=== PATIENT | male | born 1985 | race Caucasian/White ===

== ENCOUNTER 2017-02-20 18:38 | Emergency (ER) | payer OTHER ==
[2017-02-20 18:47] VITALS: BP 137/82
--- NOTE | 2017-02-20 19:36 | ERNOTE ---
Medical Problem HPI - Narrative Date of Service: 02/20/17 - General Chief Complaint: Upper Extremity Injury/Problem Time Seen by Provider: 02/20/17 19:05 Source: patient, RN notes reviewed Exam Limitations: no limitations - Immun/Allergies/Home Medications Immunizations: IMMUNIZATION HX Immunizations Up to Date Yes History of Influenza Vaccine No Hx Pneumococcal Vaccination No Allergies/Adverse Reactions: Allergies No Known Allergies Allergy (Verified 07/31/16 09:37) Home Medications: HOME MEDICATIONS NK [No Home Medication] 02/20/17 [Last Taken Unknown] - History of Present History Narrative: 31 y/o male ambulatory to the ED for an episode of numbness and weakness in his right arm and leg that occurred just ENV[employer]MENT[employer] and have since resolved. 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 The automobile club information clerk weakness lasted only a few seconds. His symptoms began while he was showering. He reports he had felt fine all day. Review of Systems - Review of Systems Constitutional: Absent: recent illness, fever, chills, fatigue, malaise EYE: Absent: eye pain, blurred vision ENT: Present: no symptoms reported Respiratory: Absent: shortness of breath, cough Cardiology: Absent: chest pain, syncope Gastrointestinal/Abdominal: Absent: nausea, vomiting, diarrhea, eating less, drinking less Genitourinary: Present: no symptoms reported Musculoskeletal: Absent: back pain, muscle pain, neck pain, joint pain Skin: Absent: rash, lesions Neurological: Absent: headache, dizziness/light-headedness Endocrine: Present: no symptoms reported Hematologic/Lymphatic: Absent: easy bruising, easy bleeding Psych: Absent: anxiety - Patient's Past Medical History Patient History - Medical: No pertinent hx Patient History - Cardiac/Respiratory: No pertinent hx Patient History - Cancer: No Hx of Cancer Patient History - Surgical Procedures: T & A Patient History - Other: None - Family History Mother Family History - Medical: No pertinent hx Father Family History - Medical: No pertinent hx - Social History Living Situations: home Abuse History: No History of abuse Psych History: No pertinent hx Smoking Status: Never smoker Have you smoked in the past 12 months: No Do you dip or chew tobacco: No Alcohol Use: occasionally Drug Use: none - Immunizations Immunizations Up to Date: Yes Hx Pneumococcal Vaccination: No History of Influenza Vaccine: No Physical Exam - Physical Exam General Appearance: Present: wd/wn, alert, no apparent distress, other - Clean, well dressed and groomed Eye Exam: Normal inspection: bilateral, PERRL: bilateral Ears, Nose, Throat: Present: normal ENT inspection Neck: Present: normal inspection, nontender, supple, full range of motion Respiratory: Present: no respiratory distress, normal breath sounds, no accessory muscle use, lungs clear Cardiovascular/Chest: Present: regular rate, rhythm, no murmur, normal peripheral pulses Gastrointestinal/Abdominal: Present: normal bowel sounds, nontender, nondistended, soft Extremity Exam: Present: normal inspection, normal range of motion Neurological Exam: Present: alert, oriented, normal mood/affect, no motor/ sensory deficits Skin Exam: Present: normal color, warm/dry ED Progress - Vital Signs Patient's Vital Signs:: I have reviewed the patient's vital signs. Vital Signs: Vital Signs 02/20/17 18:39 Temperature 37.3 C Pulse Rate 98 Respiratory 16 Rate Blood Pressure 137/82 O2 Sat by Pulse 100 Oximetry - Progress/Reassessment Chief Complaint: Upper Extremity Injury/Problem Progress:: Improved Plan - Plan Plan: Symptoms resolved and physical exam is unremarkable. Reassured patient that symptoms did not sound concerning for a stroke (this was his main worry) but discussed f/u if the symptoms return or are occurring intermittently. Departure - Departure Clinical Impression: Transient neurological symptoms Disposition: Home self-care Condition: Good Instructions: Paresthesia Additional Instructions: Return for persistent symptoms, or see your doctor for further evaluation if you continue to have similar transient episodes
== END 2017-02-20 19:30 | disposition home or self-care (01) ==
LOC: ER 18:38
DX: R20.8 Other disturbances of skin sensation (principal)

== ENCOUNTER 2017-03-22 16:37 | Emergency (ER) | payer OTHER ==
[2017-03-22 16:49] VITALS: BP 149/100
[2017-03-22 18:14] LABS: Hematocrit 42.3 % (42.0-52.0); Hemoglobin 14.5 gm/dL (13.5-18.0); Mean Corpuscular Hemoglobin 28.1 pg (27-31); Mean Corpuscular Hgb Conc 34.3 g/dl (32-36); Mean Platelet Volume 9.2 fl (6.0-9.5); Neutrophil # 5.9 K/mm3 (1.3-6.0); Neutrophil % 59.8 % (42-75.0); Platelet Count 329 K/mm3 (150-450); Red Blood Count 5.16 M/mm3 (4.7-6.0); Red Cell Distribution Width 12.9 % (11.5-14.0); White Blood Count 9.9 K/mm3 (4.0-10.5)
[2017-03-22 18:38] LABS: Albumin * 4.2 gm/dl (3.4-5.0); Anion Gap 15.7 mmol/L (6.8-13.8); BUN/Creatinine Ratio 8.4 (9.0-21.6); Bilirubin, Total 0.2 mg/dL (0.0-1.1); Ca. Corrected For Albumin 8.7 mg/dL (8.4-10.2); Calcium * 9.2 mg/dL (7.9-10.9); Carbon Dioxide 27.4 mmol/L (24-32.6); Potassium 4.1 mmol/L (3.4-4.6); Total Protein 7.7 gm/dL (6.2-8.2)
--- NOTE | 2017-03-22 18:40 | ERNOTE ---
Medical Problem HPI - Narrative Date of Service: 03/22/17 - General Chief Complaint: General Assessment Time Seen by Provider: 03/22/17 18:37 Source: patient - Immun/Allergies/Home Medications Immunizations: IMMUNIZATION HX Immunizations Up to Date Yes History of Influenza Vaccine No Hx Pneumococcal Vaccination No Allergies/Adverse Reactions: Allergies No Known Allergies Allergy (Verified 03/22/17 16:49) Home Medications: HOME MEDICATIONS NK [No Home Medication] 02/20/17 [Last Taken Unknown] - History of Present History Narrative: LIGHTHEADED FEELING OFF AND ON FOR 1 WEEK. SAYS ITS A LITTLE LIKE FEELING IN A FOG . IT COMES AND GOES. NO OTHER SYMPTOMS HE WAS JUST HERE LAST MONTH WITH C/O OF [place]. HE DENIES ANY MEDS OR DRUG. SAYS HE HAS OCC BEER. HE CAN NOT RELATE ANY CAUSING ACTIVITIES. NO HX OF WEAKNESS . HE WONDERS IF HE COULD BE DIABETIC. NO HAMM OR N OR V O D. ONLY HOSPITALIZED CHILD FOR T & A. NEVER HAD ANY SERIOUS ILLNESS. 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 HAS NO PCP. Review of Systems - Review of Systems Constitutional: Present: See HPI EYE: Present: no symptoms reported ENT: Present: no symptoms reported Respiratory: Present: no symptoms reported Cardiology: Present: no symptoms reported Gastrointestinal/Abdominal: Present: no symptoms reported Genitourinary: Present: no symptoms reported Musculoskeletal: Present: no symptoms reported Skin: Present: no symptoms reported Neurological: Present: See HPI, dizziness/light-headedness Endocrine: Present: no symptoms reported Hematologic/Lymphatic: Present: no symptoms reported Psych: Present: no symptoms reported All Other Systems: All systems neg except as marked - Patient's Past Medical History Patient History - Medical: No pertinent hx Patient History - Cardiac/Respiratory: No pertinent hx Patient History - Cancer: No Hx of Cancer Patient History - Surgical Procedures: T & A Patient History - Other: None - Family History Mother Family History - Medical: No pertinent hx Father Family History - Medical: No pertinent hx - Social History Living Situations: home Abuse History: No History of abuse Psych History: No pertinent hx Alcohol Use: occasionally Drug Use: none - Immunizations Immunizations Up to Date: Yes Hx Pneumococcal Vaccination: No History of Influenza Vaccine: No Physical Exam - Physical Exam General Appearance: Present: wd/wn, alert, no apparent distress - HEALTHY LOOKING YOUNG MAN WITH NAD. ON ADMISSION FIRST BP ~ 150/100 BUT SUBSEQUENT BP ARE NORMAL SO I DOUBT THAT WAS AN ACCURATE READING. 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 Absent: facial droop, motor weakness, disoriented to person, disoriented to time, disoriented to place, disoriented to situation DTR: N=norm/NB=norm/brisk/A=abs/DD=dull/dimin/HC=hyperactive: Tricep (R): Normal , Tricep (L): Normal, Knee (R): Normal, Knee (L): Normal Skin Exam: Present: normal color, warm/dry ED Progress - Results and Orders Patient's Lab Results:: I have reviewed the patient's lab results. Results and Orders: CBC CMP = NORMAL. - Vital Signs Vital Signs: Vital Signs 03/22/17 16:44 Temperature 36.4 C L Pulse Rate 95 Respiratory 12 Rate Blood Pressure 149/100 O2 Sat by Pulse 96 Oximetry - EKG EKG: NSR EKG read: Interp. by me - Progress/Reassessment Chief Complaint: General Assessment Departure - Departure Clinical Impression: Intermittent lightheadedness Disposition: Home Follow Up Needed Condition: Good Instructions: Dizziness, [id number] Additional Instructions: I FIND NO SIGN OF ANY ILLNESS. I SUGGEST YOU GET AN APPOINTMENT WITH A NEUROLOGY PHYSICIAN TO DISCUSS IF ANY FURTHER TREATMENT IS NEEDED. USE DR SEWELL 'S NUMBER TO CALL THE CLINIC FOR APPOINTMENT FOR FURTHER EXAM. AVOID ANY DRUGS OR ALCOHOL IN THE MEANTIME. Referrals: Varinder Sewell MD [Staff Physician] -
[2017-03-22 19:05] LABS: Urine Bilirubin Negative (NEGATIVE); Urine Blood 50 /ul (NEGATIVE); Urine Ketone Negative (NEGATIVE); Urine Nitrite Negative (NEGATIVE); Urine Protein Negative (NEGATIVE); Urine Urobilinogen Normal (NORMAL)
[2017-03-22 19:09] LABS: Hemoglobin A1C 5.6 % (4.00-6.0)
[2017-03-22 19:18] LABS: Cocaine Ur Negative (NEGATIVE); Urine Barbiturate Negative (NEGATIVE); Urine Benzodiazepines Negative (NEGATIVE); Urine Opiates Negative (NEGATIVE); Urine PCP Negative (NEGATIVE); Urine THC Negative (NEGATIVE)
[2017-03-22 19:28] LABS: Urine Appearance Clear; Urine Bacteria None Seen; Urine Color Yellow; Urine RBC TRACE /hpf (0-5); Urine WBC None Seen /hpf (0-5)
== END 2017-03-22 20:20 | disposition home or self-care (01) ==
LOC: ER 16:37
DX: R42 Dizziness and giddiness (principal)
CPT/HCPCS: 36415; 80053; 80307; 81001; 83036; 84443; 85025; 93005; 99284; G0481

== ENCOUNTER 2017-06-24 13:19 | Emergency (ER) | payer OTHER ==
[2017-06-24] MEDS ORDERED: LORazepam 2 MG/ML DISP.SYRIN IV ONE (13:42)
[2017-06-24] MEDS ORDERED: LORazepam 2 MG/ML DISP.SYRIN ONE (13:44)
--- NOTE | 2017-06-24 13:47 | ERNOTE ---
Chest Pain/Cardiac HPI Date of Service: 06/24/17 Chief Complaint: Chest Pain Source: patient Exam Limitations: no limitations Immunizations: IMMUNIZATION HX Immunizations Up to Date Yes History of Influenza Vaccine No Hx Pneumococcal Vaccination No Allergies/Adverse Reactions: Allergies No Known Allergies Allergy (Verified 06/24/17 13:44) Home Medications: HOME MEDICATIONS ALPRAZolam [Xanax] 0.25 mg PO TID PRN #15 tab 06/24/17 [Last Taken Unknown] Narrative: 32 yo WM who was at work when he developed sudden onset of lower sternal chest tightness and mild SOB. Denies any other associated symptoms. Now complains of being nervous. Chest pressure still present and is aware of the SOB intermittently which he describes as taking a full breathe and seems he doesn't have enough air. Has been healthy and active. Review of Systems - Review of Systems Constitutional: Present: no symptoms reported EYE: Present: no symptoms reported ENT: Present: no symptoms reported Cardiology: Present: no symptoms reported Gastrointestinal/Abdominal: Present: no symptoms reported Genitourinary: Present: no symptoms reported Musculoskeletal: Present: no symptoms reported - Patient's Past Medical History Patient History - Medical: No pertinent hx Patient History - Cardiac/Respiratory: No pertinent hx Patient History - Cancer: No Hx of Cancer Patient History - Surgical Procedures: T & A Patient History - Other: None - Family History Mother Family History - Medical: No pertinent hx Father Family History - Medical: No pertinent hx - Social History Living Situations: home Abuse History: No History of abuse Psych History: No pertinent hx Alcohol Use: occasionally Drug Use: none - Immunizations Immunizations Up to Date: Yes Hx Pneumococcal Vaccination: No History of Influenza Vaccine: No Physical Exam - Physical Exam General Appearance: Present: wd/wn, alert, no apparent distress Head Exam: Present: normal inspection Eye Exam: PERRL: bilateral, EOMI: bilateral Ears, Nose, Throat: Present: normal ENT inspection Neck: Present: normal inspection Respiratory: Present: no respiratory distress, normal breath sounds Cardiovascular/Chest: Present: regular rate, rhythm Peripheral Pulses: N=norm/S=strong/W=weak/B=bound/A=absent: Radial (R): Normal, Strong, Radial (L): Normal, Strong Gastrointestinal/Abdominal: Present: normal bowel sounds, nontender, nondistended, soft Extremity Exam: Present: normal inspection, non-tender, normal range of motion, no edema Neurological Exam: Present: alert, oriented, normal mood/affect, no motor/ sensory deficits ED Progress - Results and Orders Patient's Lab Results:: I have reviewed the patient's lab results. - Vital Signs Patient's Vital Signs:: I have reviewed the patient's vital signs. - EKG EKG: other - tachycardia - X-Ray X-Ray #1 X-Ray: chest Interpretation: Reviewed by me - Progress/Reassessment Progress Note-Subjective: 06/24/17 14:31 Pain free and no discomfort or tightness. SOB also gone 06/24/17 15:08 Continues to feel well. Still with HR in 110-120's Plan - Plan Plan: Follow up with PCP Return to ED if condition worsens Take Xanax as directed Departure - Departure Clinical Impression: Chest tightness or pressure Disposition: Home self-care Condition: Good Instructions: Panic Attacks, [id number] Prescriptions: ALPRAZolam [Xanax] 0.25 mg PO TID PRN #15 tab PRN Reason: Anxiety
[2017-06-24 13:56] LABS: Hematocrit 39.8 % (42.0-52.0); Hemoglobin 13.7 gm/dL (13.5-18.0); Mean Cell Volume 82.6 fl (78-100); Mean Corpuscular Hemoglobin 28.4 pg (27-31); Mean Corpuscular Hgb Conc 34.4 g/dl (32-36); Mean Platelet Volume 8.8 fl (6.0-9.5); Neutrophil # 5.2 K/mm3 (1.3-6.0); Neutrophil % 66.4 % (42-75.0); Platelet Count 277 K/mm3 (150-450); Red Blood Count 4.82 M/mm3 (4.7-6.0); Red Cell Distribution Width 12.2 % (11.5-14.0); White Blood Count 7.8 K/mm3 (4.0-10.5)
[2017-06-24 14:19] LABS: ALT 26 U/L (19-67); AST 19 U/L (0-48); Alkaline Phosphatase * 77 U/L (50-170); Anion Gap 9.6 mmol/L (6.8-13.8); BUN/Creatinine Ratio 10.6 (9.0-21.6); Bilirubin, Total 0.3 mg/dL (0.0-1.1); Blood Urea Nitrogen 13 mg/dL (6-23); Ca. Corrected For Albumin 8.1 mg/dL (8.4-10.2); Calcium * 8.4 mg/dL (7.9-10.9); Chloride 102 mmol/L (97-106); Glucose * 147 mg/dL (70-110); Potassium 3.6 mmol/L (3.4-4.6); Sodium 138 mmol/L (132-142); Total Protein 7.3 gm/dL (6.2-8.2); Troponin I Less than 0.017 ng/ml (0.00-0.10)
[2017-06-24 14:50] VITALS: BP 133/86
== END 2017-06-24 15:21 | disposition home or self-care (01) ==
LOC: ER 13:19
DX: R07.89 Other chest pain (principal); R45.0 Nervousness